=== PATIENT | female | born 1990 | race Caucasian/White ===

== ENCOUNTER 2020-07-30 01:44 | Emergency (ER) | payer BC, MEDICAID, SELFPAY ==
[2020-07-30 01:52] VITALS: BP 116/67; PULSE 67; RESP 18; TEMP 36.9; O2SAT 100; BMI 25.7
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
[2020-07-30] MEDS: tetanus-dipt-pertussis 0.5 mL SDV IM (02:07)
[2020-07-30] MEDS: iohexol 300 mg/mL 100 mL Btl IV (02:32)
[2020-07-30 03:07] VITALS: BP 101/65; PULSE 82; RESP 18; O2SAT 100
--- NOTE | 2020-08-06 13:29 | PC.NURSE ---
Pt returned for staple removal. 3 french removed from right scalp, wound edges well approximated, slight scabbing, no bleeding.
== END 2020-07-30 03:09 | disposition home or self-care (01) ==
PROVIDERS: Emergency Provider Emergency Medicine
DX: S01.01XA Laceration without foreign body of scalp, initial encounter (principal); S20.319A Abrasion of unspecified front wall of thorax, initial encounter; S30.811A Abrasion of abdominal wall, initial encounter; V09.9XXA Pedestrian injured in unspecified transport accident, initial encounter; Z23 Encounter for immunization
CPT/HCPCS: 12001; 70450; 71260; 72125; 73562; 74177; 90471; 90715; 99283; Q9967